=== PATIENT | female | born 1975 | race Caucasian/White ===

== ENCOUNTER → 2024-07-02 | Outpatient (CLI) | payer MEDICAID, SELFPAY ==
--- NOTE | 2024-07-02 08:06 | XR_ITS ---
Examination: Screening digital mammography, bilateral Computer aided detection 3-D breast Tomosynthesis, bilateral Date and time of exam: July 02, 2024 at 0811 hrs. Indication: Screening Comment patient states left nipple beginning 3 years Technique: Nonmagnified MLO, CC views of the breasts to been obtained, reconstructed from 3-D Tomosynthesis images. R2 computer aided detection program utilized for evaluation of suspicious masses and/or abnormal calcifications. 3-D Tomosynthesis images obtained. Findings: Scattered areas of fibroglandular density. 6 mm nodule 12:00 position right breast partially indistinct margins Benign calcifications Impression: BI-RADS Category 0: Incomplete: Additional evaluation needed 6 mm nodule 12:00 position right breast, recommend follow-up spot tomographic views of this nodule as well as right breast sonography to complete the workup.
== END | disposition home or self-care (01) ==
LOC: CDIM 07:48
PROVIDERS: Referring Provider Family Medicine; Visit Provider Family Medicine
DX: Z12.31 Encounter for screening mammogram for malignant neoplasm of breast (principal); N63.15 Unspecified lump in the right breast, overlapping quadrants
CPT/HCPCS: 77063; 77067

== ENCOUNTER → 2024-08-17 | Outpatient (CLI) | payer MEDICAID, SELFPAY ==
--- NOTE | 2024-08-17 09:00 | XR_ITS ---
Examination: Breast ultrasound, unilateral, right complete Date and time of exam: August 24, 2024 0903 hrs. Indications: Mammogram July 02, 2024 6 mm nodule 12:00 position right breast Technique: Real-time verdin scale ultrasonographic imaging performed right breast including all 4 quadrants as well as nipple retroareolar and axillary region. Findings: No cystic or solid mass Impression: BI-RADS Category 1: Negative study
--- NOTE | 2024-08-17 09:30 | XR_ITS ---
Examination: Diagnostic digital mammography, unilateral, right Computer aided detection 3-D breast Tomosynthesis, unilateral Date and time of exam: 08/17/2024, 9:16 AM Comparisons: 07/02/2024 Indications: Further evaluation of abnormality seen on recent screening exam Technique: Nonmagnified MLO, CC views of the right breast have been obtained, reconstructed from 3-D Tomosynthesis images. R2 computer aided detection program utilized for evaluation of suspicious masses and/or abnormal calcifications. 3-D Tomosynthesis images obtained. Technologist: Findings: There are scattered areas of fibroglandular density. No evidence of abnormal masses or suspicious calcifications. The previously described abnormality does not persist on spot compression views and represents superimposition of normal fibroglandular tissue. Impression: BI-RADS category 1: Negative findings (within normal) Recommend 1 year follow-up mammogram
== END | disposition home or self-care (01) ==
PROVIDERS: PCP Family Medicine; Referring Provider Family Medicine; Visit Provider Family Medicine
DX: N63.0 Unspecified lump in unspecified breast (principal); R92.311 Mammographic fatty tissue density, right breast
CPT/HCPCS: 76641; 77061; 77065; G0279